=== PATIENT | female | born 1955 | race Caucasian/White ===

== ENCOUNTER 2019-05-27 09:28 | Day surgery (SDC) | payer MEDICAID ==
[~2019-05-27] VITALS: Ht 160 cm; Wt 68.2 kg
[~2019-05-27 09:28] MED LIST: BUPR-93 PO; DIVA-78 PO; PROZ10 PO; SODIUM CHLORIDE 0.9% 1,000 ML IV ONE; TRAZ-252 PO
[2019-05-27] MEDS ORDERED: PROPOFOL 1% 20 ML VIAL IVP ONE (09:29)
[2019-05-27] MEDS ORDERED: LIDOCAINE/PF 2% 5 ML VIAL IM ONE (09:29)
[2019-05-27] MEDS ORDERED: SODIUM CHLORIDE 0.9% 1,000 ML IV ONE (10:30)
== END 2019-05-27 14:30 | disposition home or self-care (01) ==
LOC: SURGERY 09:28
PROVIDERS: ATTEND Student in an Organized Health Care Education/Training Program
DX: K63.5 Polyp of colon (principal); K29.50 Unspecified chronic gastritis without bleeding; K57.30 Diverticulosis of large intestine without perforation or abscess without bleeding; K64.8 Other hemorrhoids; K31.89 Other diseases of stomach and duodenum; F31.9 Bipolar disorder, unspecified; Z82.49 Family history of ischemic heart disease and other diseases of the circulatory system; Z90.49 Acquired absence of other specified parts of digestive tract; Z98.890 Other specified postprocedural states; Z90.721 Acquired absence of ovaries, unilateral
CPT/HCPCS: 45380; 43239; 88305; 88312; 88313; C1769; J2704; J3490; J7030